=== PATIENT | male | born 1990 | race Two or more races ===

== ENCOUNTER → 2019-10-09 17:08 | Outpatient (CLI) | payer MEDICAID, SELFPAY ==
[2019-10-09 13:59] VITALS: BMI 24.9
[2019-10-09 17:29] LABS: Absolute Lymphocyte Count 2.64 X10^3/uL (0.83-4.51); Absolute Neutrophil Count 2.8 X10^3/uL (2.0-7.7); Basophil# 0.05 X10^3/uL; Basophil% 0.8 % (0-1); Eosinophil# 0.22 X10^3/uL; Eosinophils% 3.6 % (0-5); Hematocrit 48.9 % (40-54); Hemoglobin 16.4 g/dL (13.0-16.5); Lymphocyte # 2.64 X10^3/ul (4.0); Lymphocyte % 42.6 % (19-41); Mean Corp Hgb Conc 33.5 g/dL (32-36); Mean Corpuscular Hgb 29.5 pg (27.0-32.0); Mean Corpuscular Volume 88.1 fL (80-94); Mean Platelet Vol. 9.9 fl (6.2-12.0); Monocyte% 8.1 % (0-10); NRBC Flagged by Analyzer 0 % (0-5); Neutrophil # 2.77 X10^3/uL (2.7-7.7); Neutrophil % 44.7 % (47-70); Platelet Count 255 K/mm3 (150-450); RBC Distribution Width CV 12.4 % (11.6-14.6); RBC Distribution Width SD 39.6 fl (35.1-43.9); Red Blood Count 5.55 M/mm3 (4.6-6.2); White Blood Count 6.2 K/mm3 (4.4-11.0)
[2019-10-09 18:46] LABS: ALB/GLOB Ratio 1.1 RATIO (0.9-2.4); AST(SGOT) 58 U/L (15-37); Alanine Aminotransfer ALT/SGPT 138 U/L (16-61); Alkaline Phosphatase 87 U/L (45-117); Anion Gap 10 (5-15); BUN 17 mg/dL (7-18); BUN/Creat Ratio 17.6 RATIO (10-20); Calcium,Total 9.2 mg/dL (8.5-10.1); Chloride 100 mmol/L (98-107); Creatinine, Serum 0.96 mg/dL (0.70-1.30); EST Glomerular Filtration Rate 97 mL/min (>60); Est Glom Filt Rate - Afr Amer 117 mL/min (>60); Globulin 3.7 g/dL (2.2-4.2); Glucose 78 mg/dL (74-106); Potassium 3.7 mmol/L (3.5-5.1); Protein, Total 7.7 g/dL (6.4-8.2); Sodium Level 137 mmol/L (136-145); Thyroid Stim Hormone (TSH) 2.83 uIU/mL (0.358-3.74)
[2019-10-10 09:06] LABS: Hepatitis B Surface Antigen Non-Reactive (Nonreactive)
[2019-10-10 09:12] LABS: Hepatitis C Antibody REACTIVE (Nonreactive)
[2019-10-24 14:08] LABS: HCV Quant. RNA PCR 99700 IU/mL (.)
[2019-10-25 12:00] LABS: HCV log 10 4.999 (.)
== END ==
PROVIDERS: PCP Internal Medicine; Referring Provider Nurse Practitioner Family; Visit Provider Nurse Practitioner Family
DX: F19.10 Other psychoactive substance abuse, uncomplicated (principal); B19.20 Unspecified viral hepatitis C without hepatic coma
CPT/HCPCS: 80053; 84443; 85025; 86803; 87340; 87521; 87522